=== PATIENT | female | born 1955 | race Caucasian/White ===

== ENCOUNTER 2024-10-22 20:08 | Day surgery (SDC) | payer OTHER, SELFPAY ==
[2024-10-22] VITALS (13 sets, daily range): BP systolic 115–175; BP diastolic 60–106; BMI 24.7
--- NOTE | 2024-10-22 11:42 | ED.GENMED ---
History of Present Illness
<Marco Faust MD - Last Filed: 10/22/24 14:24>
General
Chief Complaint: Abdominal Pain
Time Seen by Provider: 10/22/24 11:38
<Manjinder Valdes MD, Resident - Last Filed: 10/22/24 17:00>
General
Source: patient and family
Exam Limitations: none
Nursing documentation reviewed up to this point in time: agreed with
History of Present Illness
History of Present Illness:
This is a 69-year-old female with no known past medical history currently not on any medication presenting in the emergency department with complaints of severe right sided lower abdomen/pelvis pain for last 2 hours. She is Jordanian-speaking female.
Family helped with interpretation. Patient had a right-sided inguinal hernia which was repaired surgically 2 years ago. Has been noticing swelling and pain in the same area today. Denies any vomiting however did experience some nausea. Had a
normal bowel movement today. No fevers or chills. No chest pain or trouble breathing. Cannot recall any inciting events like lifting heavy objects etc. patient and family unsure if there was a mesh placed during her surgery 2 years ago for same.
Past History
<Manjinder Valdes MD, Resident - Last Filed: 10/22/24 17:00>
Past History
ED Past Medical History: None
ED Past Surgical History: Other (Inguinal hernia repair)
Patient has exhibited threatening behavior?: No
Social History
Tobacco: Non-smoker
Alcohol: None
Drug: None
Living: with family
Family History
Family History: Other (Noncontributory)
Review of Systems
<Manjinder Valdes MD, Resident - Last Filed: 10/22/24 17:00>
Review of Systems
Allergies reviewed?: Yes
Other source history: family
Constitutional: Denies fever or chills
Respiratory: Denies cough
Cardiac: Denies chest pain
ABD/GI: Reports abdominal pain (Right lower); Denies diarrhea
: Denies dysuria
Musculoskeletal: Denies joint pain
Skin: Denies itching
Neurological: Denies dizzy
Endocrine: Denies polyuria
Hematologic/Lymphatic: Denies bleeding
Phy Exam
<Manjinder Valdes MD, Resident - Last Filed: 10/22/24 17:00>
General Physical Exam
General Presentation: moderate distress
General age: appears stated age
General Skin: warm
General Habitus: normal
General Mental: alert
General Hydration: appears well hydrated
Cardiovascular Exam
Cardiovascular Exam: regular rate/rhythm and no murmur
Pulmonary Exam
Pulmonary Exam: lungs clear and no crackles
Gastrointestinal Exam
Gastrointestinal Exam: soft, mass (Right-sided inguinal hernia. Tender to palpation) and surgical scar
Neurological Exam
Neurological Exam: alert and oriented x3
Course
<Marco Faust MD - Last Filed: 10/22/24 14:24>
Orders/Labs/Results
Orders:
Orders
10/22/24 12:16
Fentanyl Citrate/Pf [Sublimaze] 100 mcg IV NOW STA
10/22/24 12:17
Fentanyl Citrate/Pf [Sublimaze] 50 mcg IV NOW STA
10/22/24 13:02
CT Abd/pelvis W Iv Cont Urgent
Comment:
Reason For Exam: right inguinal pain and swelling
10/22/24 13:04
Complete Blood Count/With Diff Urgent
Comprehensive Metabolic Panel Urgent
Lactate Level [Lactic Acid] Urgent
10/22/24 14:31
0.9% Sodium Chloride 500 ml [Nss] 500 ml IV BOLUS
10/22/24 14:50
Lactate Level [Lactic Acid] Urgent
Abnormal Lab Results
10/22/24
13:04
WBC 14.4 H 10^3/uL
(4.8-10.8)
Abs Immat Gran (auto) 0.1 H 10^3/uL
(0-0.05)
Absolute Neuts (auto) 11.6 H 10^3/uL
(1.4-6.5)
Neutrophils % 80.4 H %
(42.2-75.2)
Lymphocytes % 15.3 L %
(20.5-51.1)
Chloride 108 H mmol/L
(98-107)
Carbon Dioxide 21 L mmol/L
(22-30)
Glucose 158 H mg/dl
(70-99)
Lactic Acid 2.3 H mmol/L
(0.7-2.0)
10/22/24 13:04
10/22/24 13:04
Vital Signs
Initial and Last Documented VS:
Initial Vital Signs
Pulse Resp BP Pulse Ox
55 16 125/60 97
10/22/24 11:13 10/22/24 11:13 10/22/24 11:13 10/22/24 11:13
Last Documented Vital Signs
Temp Pulse Resp BP Pulse Ox
98 F 61 13 151/71 97
10/22/24 11:36 10/22/24 15:01 10/22/24 15:01 10/22/24 15:00 10/22/24 14:59
<Manjinder Valdes MD, Resident - Last Filed: 10/22/24 17:00>
Orders/Labs/Results
Orders:
Orders
10/22/24 12:16
Fentanyl Citrate/Pf [Sublimaze] 100 mcg IV NOW STA
10/22/24 12:17
Fentanyl Citrate/Pf [Sublimaze] 50 mcg IV NOW STA
10/22/24 13:02
CT Abd/pelvis W Iv Cont Urgent
Comment:
Reason For Exam: right inguinal pain and swelling
10/22/24 13:04
Complete Blood Count/With Diff Urgent
Comprehensive Metabolic Panel Urgent
Lactate Level [Lactic Acid] Urgent
10/22/24 14:31
0.9% Sodium Chloride 500 ml [Nss] 500 ml IV BOLUS
10/22/24 14:50
Lactate Level [Lactic Acid] Urgent
Abnormal Lab Results
10/22/24
13:04
WBC 14.4 H 10^3/uL
(4.8-10.8)
Abs Immat Gran (auto) 0.1 H 10^3/uL
(0-0.05)
Absolute Neuts (auto) 11.6 H 10^3/uL
(1.4-6.5)
Neutrophils % 80.4 H %
(42.2-75.2)
Lymphocytes % 15.3 L %
(20.5-51.1)
Chloride 108 H mmol/L
(98-107)
Carbon Dioxide 21 L mmol/L
(22-30)
Glucose 158 H mg/dl
(70-99)
Lactic Acid 2.3 H mmol/L
(0.7-2.0)
10/22/24 13:04
10/22/24 13:04
Vital Signs
Initial and Last Documented VS:
Initial Vital Signs
Pulse Resp BP Pulse Ox
55 16 125/60 97
10/22/24 11:13 10/22/24 11:13 10/22/24 11:13 10/22/24 11:13
Last Documented Vital Signs
Temp Pulse Resp BP Pulse Ox
98 F 61 13 151/71 97
10/22/24 11:36 10/22/24 15:01 10/22/24 15:01 10/22/24 15:00 10/22/24 14:59
<Manjinder Valdes MD, Resident - Last Filed: 10/22/24 17:00>
MDM/Problems Addressed
Differential Diagnosis Includes:
Indirect inguinal hernia vs incisional hernia
MDM/Problems Addressed:
Patient in moderate distress very tender to palpation. Ice pack was placed
Will give fentanyl IV and will trial manual reduction
If not successful will need general surgery consult.
update;
Most of the hernia was reduced manually however a portion of it keeps coming back could be fat versus bowel. Patient received 100 mcg of fentanyl
will get ct abd/pel with IV
update:CBC with elevation of white count to 14.4, CMP with blood glucose of 158 and lactic acid of 2.3
will give 500ml ns bolus
repeat lactate after ivf
update:
Patient feeling significantly better
CT with There is a right inguinal hernia containing only fat.
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
There is spondylolisthesis at L5/S1 with degenerative disc disease.
Awaiting surgery eval.
update: Patient continues to be comfortable and reports 2/10 pain
Repeat lactate 1.0.
General surgery to admit the patient for potential OR tomorrow
<Marco Faust MD - Last Filed: 10/22/24 14:24>
*Pulse Oximetry
SaO2: 98
Oxygen Mode of Delivery: Room air
<Manjinder Valdes MD, Resident - Last Filed: 10/22/24 17:00>
*Pulse Oximetry
Patient hypoxic: no
*Critical Care Note
Total Time (30-74mins, 75-104mins- exclusive of procedures): Not Applicable
ED Attending Note
<Marco Faust MD - Last Filed: 10/22/24 14:24>
ED Attending Note
Patient seen and examined by attending physician: Yes
I performed a history and physical exam of patient and discussed management with resident, I reviewed resident's note and agree with documented findings and plan of care.: Yes
ED Attending Note:
I have seen and evaluated the patient with a [id number] encounter. I have spoken to the resident and involved in the medical history, the physical exam, medical decision making.
Evaluation and management service: agree unless noted differently below.
Results interpretation: agree unless noted differently below.
Focused HPI: 69-year-old female with history as noted presents for evaluation of pain and swelling in the right groin. Patient had inguinal hernia repair 2 years ago in the right groin. She says that about 2 to 3 hours ago she started with pain
and swelling in the groin and developed a painful lump. Came to the ER for assessment. Denies abdominal pain. She denies any nausea or vomiting. She denies constipation�had a bowel movement today.
Physical exam: Patient appears mildly uncomfortable. Vital signs are normal. She has palpable large right inguinal hernia just inferior to an incision near the inguinal crease. No skin changes overlying but hernia is tender to the touch. Abdomen
is nontender and nondistended.
Medical Decision Makin-year-old female presents with incarcerated right inguinal hernia. No signs of obstruction. Will apply ice pack and provide pain medication to try to facilitate reduction. If unable to reducible may need to speak with
general surgery.
Ice pack applied for 20 minutes and patient was placed in Trendelenburg. Patient was given fentanyl x 2 total doses 50 mcg during the course of bedside attempt at reduction of her hernia. We were able to reduce the hernia significantly but still
small portion which was irreducible. Pain did improve slightly but she still has significant groin pain and palpable hernia. Will check CT to better evaluate.
-
Portions of this chart may have been created with voice recognition software.� Occasional wrong word or��sound alike� substitutions may have occurred due to the inherent limitations of voice recognition software.
Discharge Plan
Departure
Patient Disposition: Admit
Date of Disposition: 10/22/24
Time of Disposition: 16:59
Presentation/result/management discussed w/ accepting MD/DO: G.surgery
Discharge Problem:
Hernia, inguinal, right
Instructions: Groin hernias
Activity Restrictions/Additional Instructions:
You were seen at the [facility] emergency department with concerns of right lower abdominal pain. You had blood work including complete blood count which showed the white cell count is elevated to 14.4., complete metabolic panel which
showed slight elevation of blood glucose, serum lactate was slightly high to 2.3. You received IV fentanyl for bedside inguinal hernia reduction. You also received IV normal saline [address] abdomen/pelvis was obtained which showed
following:
There is a right inguinal hernia containing only fat.
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
There is spondylolisthesis at L5/S1 with degenerative disc disease.
General surgery Plan to admit for or tomorrow
Interventions
Interventions:
*Risk Screen - Suicide Last Done: 10/22/24 11:15
*Neglect/Abuse Screening Last Done: 10/22/24 11:15
*ED- Fall Risk Assessment Last Done: 10/22/24 12:23
*ED COVID-19 Vaccine History Last Done: 10/22/24 12:23
NV-Nkrkfp-Mjoijqewis Assessment Last Done: 10/22/24 12:13
Discharge Date and Time
Print Language: Jordanian
[2024-10-22] MEDS: SUBLIMAZE 50 MCG IV (12:42)
[2024-10-22 13:21] LABS: Hematocrit 40.9 % (37.0-47.0); Hemoglobin 13.7 g/dL (12.0-16.0); Mean Corp Hgb Conc. 33.5 g/dL (33.0-37.0); Mean Corpuscular Volume 90.1 fL (81.0-99.0); Nucleated Red Blood Cells % 0 %; Platelet Count 281 10^3/uL (130-400); Red Cell Dist. Width 12.6 % (11.5-14.5)
[2024-10-22 13:36] LABS: ALT (SGPT) 16 U/L (0-35); AST (SGOT) 20 U/L (14-36); Albumin 4.6 g/dl (3.5-5.0); Alkaline Phosphatase 71 U/L (38-126); Blood Urea Nitrogen 15 mg/dl (7-17); Calcium 9.6 mg/dl (8.4-10.2); Carbon Dioxide 21 mmol/L (22-30); Chloride 108 mmol/L (98-107); Estimated Creatinine Clearance 64 ml/min; Glucose 158 mg/dl (70-99); Potassium 3.6 mmol/L (3.5-5.1); Sodium 138 mmol/L (135-145); Total Protein 7.2 g/dl (6.3-8.2); eGFR > 60.00
[2024-10-22] MEDS: NSS 500 IV (14:49)
--- NOTE | 2024-10-22 14:51 | CON.GS ---
Addendum entered and electronically signed by Nimesh Garcia MD 10/22/24 17:22:
Patient seen and examined. An shipping hand was used for this encounter.
Patient is a 69 yo M with a PMH of s/p open RIGHT inguinal hernia repair and open umbilical hernia repair in [facility] approximately 2 years ago, and s/p , s/p open hysterectomy and BSO who presents with worsening OF right groin pain and
swelling. She states that she has had intermittent discomfort and swelling on the RIGHT side previously. At approximately 8 AM this morning she developed severe pain prompting presentation to the ER. Associated nausea, but no vomiting. Last
bowel movement and flatus was today. No fevers or chills. Area was partially reduced by the ER and a CT scan was obtained which demonstrated a fat-containing recurrent femoral hernia. Currently she states that she is doing well with minimal
discomfort.
Gen: NAD
Abd: soft, NT/ND, non-peritoneal, prior incisions well healed, palpable firm hernia in RIGHT groin, discomfort with palpation, no overlying skin changes, partially reducible, no palpable LEFT inguinal hernia
Labs and CT scan were reviewed
Patient is a 69 yo F p/w acute on chronic incarceration of a recurrent RIGHT groin hernia
The natural history and pathophysiology of inguinal/groin hernias was briefly reviewed. CT scan imaging was reviewed. Options for management were reviewed. Given the incarcerated and symptomatic nature of her hernia recommend operative repair.
Plan for a robotic recurrent RIGHT groin hernia repair with mesh. The procedure itself, as well as the risks, benefits, and alternatives was discussed. Specifically, we discussed the risks of bleeding, infection, injury to surrounding structures
(bowel, nerves), chronic groin discomfort, and recurrence. Typical postprocedure recovery including pain management, length of stay in the hospital, and the need for 4 weeks no lifting or strenuous activities was discussed. All questions answered.
Consent signed.
Family was present for the encounter.
-- Robotic recurrent RIGHT groin hernia repair with mesh, added to OR schedule tomorrow
-- Clears, NPO PM
-- IVF
-- Pain control: Tylenol and IV Dilaudid PRN
-- Ancef for juanita-op abx
Original Note:
Medical History
-
Chief Complaint: incarcerated hernia
History of Present Illness:
69yoF PMH umbilical hernia and R inguinal hernia repair in [facility] without mesh 2 years ago presenting with abdominal and R inguinal pain that began 8:30 this morning with gradual increase. Pt presented with nausea and no vomiting. ED was able to
reduce most of the hernia but not entirely. Pt reports having continued pain around the site with resolved abdominal pain. BM this morning. Pt describes inguinal pain before today that waxes and wanes but has not been as severe as the pain that
prompted her presentation today.
Past Medical History
Past Medical History: None
Past Surgical History: Hernia Repair (open inguinal and umbilical hernia repair without mesh in [facility] 2 years ago) and Other (hysterectomy and BSO, c section)
Allergies / Home Medications
Allergy/AdvReac Type Severity Reaction Status Date / Time
No Known Allergies Allergy Unverified 10/22/24 11:15
Review of Systems
-
A 10 point review of systems was completed, and was negative except as per HPI.
Physical Exam
Vital Signs
Temp Pulse Resp BP Pulse Ox
98 F 63 19 138/71 99
10/22/24 11:36 10/22/24 14:15 10/22/24 14:15 10/22/24 14:10 10/22/24 14:15
10/21/24 10/22/24 10/23/24
06:59 06:59 06:59
Actual Weight 65.1 kg
Body Mass Index (BMI) 24.7
Lab Results
10/22/24 13:04
10/22/24 13:04
WBC 14.4 10^3/uL (4.8-10.8) H 10/22/24 13:04
Hgb 13.7 g/dL (12.0-16.0) 10/22/24 13:04
Hct 40.9 % (37.0-47.0) 10/22/24 13:04
Plt Count 281 10^3/uL (130-400) 10/22/24 13:04
Abs Immat Gran (auto) 0.1 10^3/uL (0-0.05) H 10/22/24 13:04
Neutrophils % 80.4 % (42.2-75.2) H 10/22/24 13:04
Physical Exam
General: Well Developed, No Apparent Distress and Comfortable
HEENT: Normocephalic and Anicteric
Respiratory: Non Labored Respirations
Cardiac: Regular Rhythm
GI: Soft, Non Tender, Non Distended and Incisions (umbilical and inguinal open incisions well healed)
Genito-urinary: Inguinal Hernia (erythematous region with palpable soft tissue, tender)
Skin: Warm and Dry
Neuro: Awake and Nonfocal/Grossly Intact
Psych: Calm
Assessment / Plan
-
69yoF PMH umbilical and R inguinal hernia repair in [facility] 2 years ago without mesh presenting with recurrent inguinal hernia. Leukocytosis. Initially increased lactic acid of 2.3 reduced now to 1. CT and physical exam performed after bedside
reduction has findings of herniated fat with no evidence of incarcerated bowel.
Surgery does not need to be done emergently, but replacing the fat into the abdominal cavity and repairing the hernia to prevent recurrence and bowel strangulation is recommended. We spoke with the patient about the risks and benefits of the
procedure and she has decided to proceed with operation.
Plan for OR tomorrow for inguinal hernia repair with mesh.
[2024-10-22] MEDS: NORMOSOL-R/PLASMALYTE-A 1000 IV (21:34)
[2024-10-22] MEDS: TYLENOL 650 MG PO (21:34)
[2024-10-22] MEDS: TYLENOL PO (23:18)
[2024-10-23] VITALS (13 sets, daily range): BP systolic 124–154; BP diastolic 63–74
[2024-10-23] MEDS: TYLENOL PO ×4 (04:39→19:40)
[2024-10-23] MEDS: TYLENOL 650 MG PO ×2 (06:04→16:02)
--- NOTE | 2024-10-23 07:09 | W.SUR.PREOP ---
Pre-Operative Surgical Note
-
I have examined this patient prior to the performance of the scheduled procedure.
The patient's condition is unchanged from the time of the current History and
Physical and the patient is able to undergo the scheduled procedure.
--- NOTE | 2024-10-23 08:06 | W.PN.GS2 ---
Today's Communication / Plan
-
Reviewed plan with attending.
Assessment / Plan
-
69 yo F with a PMH of open RIGHT inguinal hernia repair and open umbilical hernia repair in [facility] approximately 2 years ago, , open hysterectomy and BSO here with recurrence of R inguinal hernia.
Plan:
-- Robotic recurrent RIGHT groin hernia repair with mesh today
-- Resume diet after OR
-- IVF
-- Pain control: Tylenol and IV Dilaudid PRN
-- Ancef for juanita-op abx
Subjective Data
-
Date of Service: October 23, 2024
Ms. Goodson is doing well this morning. She continues to have pain in her R inguinal area.
Objective Data
-
Intake and Output
10/22/24 10/23/24 10/24/24
06:59 06:59 06:59
Intake Total 480 / 480
Balance 480 / 480
Intake:
Oral fluids 480 / 480
Other:
Number of approximated MODERATE 1
amounts of urine
Vital Signs
Temp Pulse Resp BP Pulse Ox
98.5 F 59 16 154/71 96
10/23/24 07:40 10/23/24 07:40 10/23/24 07:40 10/23/24 07:40 10/23/24 07:40
Lab Results
10/22/24 13:04
10/22/24 13:04
Calcium 9.6 mg/dl (8.4-10.2) 10/22/24 13:04
Total Bilirubin 0.7 mg/dl (0.2-1.3) 10/22/24 13:04
AST 20 U/L (14-36) 10/22/24 13:04
ALT 16 U/L (0-35) 10/22/24 13:04
Alkaline Phosphatase 71 U/L (38-126) 10/22/24 13:04
Total Protein 7.2 g/dl (6.3-8.2) 10/22/24 13:04
Albumin 4.6 g/dl (3.5-5.0) 10/22/24 13:04
Physical Exam
-
General: Well Developed, No Apparent Distress and Comfortable
HEENT: Normocephalic and Anicteric
Respiratory: Non Labored Respirations
Cardiac: Regular Rhythm
GI: Soft, Non Tender, Non Distended and Incisions, umbilical and inguinal open incisions well healed
Genito-urinary: Inguinal Hernia with palpable soft tissue, tender, erythema from yesterday resolved
Skin: Warm and Dry
Neuro: Awake and Nonfocal/Grossly Intact
Psych: Calm
Patient has a venegas catheter: No
Patient has a central line: No
[2024-10-23] MEDS: NORMOSOL-R/PLASMALYTE-A 1000 IV ×2 (09:24→17:25)
--- NOTE | 2024-10-23 13:16 | CM ---
CM met with patient's daughter in room. Patient lives independently with daughter. Patient does not have a history of VN, SNF or DME. Patient is active with her PCP. Patient will use [facility] for medication services.
PLAN: Home with no services anticipated.
--- NOTE | 2024-10-23 13:34 | W.IMMPOSTOP ---
Surgical Immed Post Op Note
-
Primary Surgeon: Radha
Assisting Surgeon: RACHELL Donohue
Pre-op Diagnosis: Incarcerated recurrent RIGHT femoral hernia
Post-op Diagnosis: Incarcerated recurrent RIGHT femoral hernia
Procedure Performed: Robotic recurrent RIGHT femoral hernia repair with mesh
Anesthesia Type: General
Specimen / Cultures: None
Estimated Blood Loss: 7 cc
Complications: None
Operative Findings:
1. Large recurrent RIGHT femoral hernia containing fat, previously reduced bowel viable
2. Bard 3D Max large mid-weight repair
[2024-10-24] MEDS: TYLENOL PO ×2 (00:06→04:10)
[2024-10-24 03:00] VITALS: BP 128/61
[2024-10-24 07:12] VITALS: BP 140/65
[2024-10-24] MEDS: TYLENOL 650 MG PO ×2 (07:43→11:44)
--- NOTE | 2024-10-24 07:58 | W.PN.GS2 ---
Addendum entered and electronically signed by Catrachito Jiménez MD 10/24/24 09:50:
I was physically present and personally performed the patterson portions of the surgical evaluation and/or procedure with the resident. I discussed the findings, reviewed the resident�s note, and confirmed the medical decision-making. I provided direct
supervision as required and agree with the assessment and plan as documented with the following additions/corrections:
Patient interviewed utilizing language line
Postoperative pain control with Tylenol.
Tolerated diet
AFVSS
NAD AAO x 3
ABD: Soft, nondistended, robotic surgical sites with glue dressings healing well. No erythema, no drainage, no open wounds. Very minimal incisional tenderness.
A/P: POD #1 status post RAL repair recurrent right femoral hernia with mesh
Doing well with postoperative recovery
Stable for discharge home
Discharge instructions reviewed with patient utilizing language line
Original Note:
Today's Communication / Plan
-
Reviewed with attending.
Assessment / Plan
-
69 yo F with a PMH of open RIGHT inguinal hernia repair and open umbilical hernia repair in [facility] approximately 2 years ago, , open hysterectomy and BSO here with recurrence of incarcerated R inguinal hernia POD #1 s/p hernia repair with
mesh recovering appropriately with managed pain. Afebrile vitals stable. Tolerating PO.
Plan:
-- Advance diet
-- IVF
-- Pain control: Tylenol and IV Dilaudid PRN
-- Plan for discharge
Subjective Data
-
Date of Service: October 24, 2024
69yoF POD #1 recurrent R inguinal hernia repair. She reports mild pain managed well on current pain regimen. Denies nausea or vomiting. Passing gas but no BM. She reports limited appetite right now but that is normal for her in the mornings.
Objective Data
-
Intake and Output
10/23/24 10/24/24 10/25/24
06:59 06:59 06:59
Intake Total 480 / 480 1495 / 1495
Balance 480 / 480 1495 / 1495
Intake:
Oral fluids 480 / 480 360 / 360
IV fluids (Total) 1035 / 1035
normosol 75 / 75
IV piggybacks 100 / 100
Other:
Number of approximated MODERATE 1 1
amounts of urine
Vital Signs
Temp Pulse Resp BP Pulse Ox
98.8 F 62 16 128/61 95
10/24/24 03:00 10/24/24 03:00 10/24/24 03:00 10/24/24 03:00 10/24/24 03:00
Lab Results
10/22/24 13:04
10/22/24 13:04
Calcium 9.6 mg/dl (8.4-10.2) 10/22/24 13:04
Total Bilirubin 0.7 mg/dl (0.2-1.3) 10/22/24 13:04
AST 20 U/L (14-36) 10/22/24 13:04
ALT 16 U/L (0-35) 10/22/24 13:04
Alkaline Phosphatase 71 U/L (38-126) 10/22/24 13:04
Total Protein 7.2 g/dl (6.3-8.2) 10/22/24 13:04
Albumin 4.6 g/dl (3.5-5.0) 10/22/24 13:04
Physical Exam
-
General: Well Developed, No Apparent Distress and Comfortable lying in bed
HEENT: Normocephalic and Anicteric
Respiratory: Non Labored Respirations
Cardiac: Regular Rhythm
GI: Soft, tenderness RLQ, Non Distended, umbilical and inguinal open incisions well healed, laparoscopic incisions clean, dry, intact
Genito-urinary: Inguinal tenderness, no palpable mass
Skin: Warm and Dry
Neuro: Awake and Nonfocal/Grossly Intact
Psych: Calm
Patient has a venegas catheter: No
Patient has a central line: No
--- NOTE | 2024-10-24 09:23 | CM ---
Reviewed the chart notes. CM continues to be available to patient/family and is monitoring medical plan for needs at discharge.
Plan: Discharge to home today. No needs identified at this time.
--- NOTE | 2024-10-24 09:50 | W.DS.TRANS ---
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
-
Discharge Instructions:
Discharge Diagnosis/Procedures Robotic recurrent RIGHT femoral hernia repair
with mesh
Diet Regular,As tolerated
Activity No strenuous activity
Additional Activity No heavy lifting (>20 lbs) or strenuous
activities for 4 weeks postop
Driving Restrictions No driving if too sore or taking narcotics
Bathing Restrictions OK to Shower
Wound Care Keep incisions clean and dry. Glue will flake
off in 2 to 3 weeks. Stitches will dissolve.
Use ice to the abdomen to reduce any bruising or
swelling.
Instructions:
Stand-Alone Forms:
Changes to Home Medications: No
Discharge Medications:
DC Medications w/original date entered in [employer]
[place]-3 Fish Oil 1 cap PO DAILY 10/22/24
cholecalciferol (vitamin D3) 50 mcg (2,000 unit) capsule 50 mcg PO DAILY 10/22/24
acetaminophen 500 mg tablet (Tylenol Extra Strength) 1,000 mg (2 x 500 mg) PO Q6HPRN PRN mild pain #1 tab 10/24/24
ibuprofen 200 mg tablet 400 mg (2 x 200 mg) PO Q6HPRN PRN moderate pain #1 tab 10/24/24
polyethylene glycol 3350 17 gram/dose oral powder (Miralax) 4 g PO DAILY PRN Constipation #119 grams 10/24/24
Home Medication Changes
Pending Results: No
[2024-10-24 11:25] VITALS: BP 130/68
--- NOTE | 2024-10-24 14:39 | PTCARENOTE ---
Pt [place] speaking. Pt's daughter at bedside to help translate discharge instructions. Care ongoing.
[2024-10-24 14:44] VITALS: BP 139/73
[2024-10-24 16:16] LABS: Hepatitis C Antibody Negative (Negative)
== END 2024-10-24 14:47 | disposition home or self-care (01) ==
LOC: SDS 20:08
PROVIDERS: ATTENDING PHYSICIAN Surgery; EMERGENCY PHYSICIAN Emergency Medicine; FAMILY PHYSICIAN Family Medicine
DX: K41.31 Unilateral femoral hernia, with obstruction, without gangrene, recurrent (principal)
CPT/HCPCS: 49557; 74177; 80053; 83605; 85025; 86803; 93005; 96361; 96374; 99285; C1781; Q9967